=== PATIENT | female | born 1950 | race Caucasian/White ===

== ENCOUNTER 2016-11-02 12:53 | Observation (INO) | payer MEDICARE, OTHER ==
[2016-11-02] MEDS: NITROGLYCERIN 0.4 MG/TAB BTL SL PRN ×2 (13:04→13:10)
--- NOTE | 2016-11-02 13:07 | ERNOTE ---
Chest Pain/Cardiac HPI Chief Complaint: Chest Pain Time Seen by Provider: 11/02/16 12:56 Source: patient Exam Limitations: no limitations Immunizations: IMMUNIZATION HX History of Influenza Vaccine No Hx Pneumococcal Vaccination No Allergies/Adverse Reactions: Allergies No Known Allergies Allergy (Verified 11/02/16 16:38) Home Medications: HOME MEDICATIONS Levothyroxine Sodium [Synthroid] 75 mcg PO DAILY 11/02/16 [Last Taken Unknown] traMADol HCL [Ultram] 50 mg PO QID PRN 11/02/16 [Last Taken Unknown] Narrative: Patient presents to the emergency room with substernal chest pressure and pain which began at 10:30 PM last night. Pain became worse at 0 200 this morning. Pain is described as a 6 or 7 out of 10 at this time radiating to both shoulders in the mid back. He should took an adult aspirin earlier on today for this pain with no resolution of the chest pain. She denies any shortness of breath. Review of Systems - Review of Systems Constitutional: Present: no symptoms reported EYE: Present: no symptoms reported ENT: Present: no symptoms reported Respiratory: Present: no symptoms reported Cardiology: Present: See HPI Gastrointestinal/Abdominal: Present: no symptoms reported Genitourinary: Present: no symptoms reported Musculoskeletal: Present: no symptoms reported Skin: Present: no symptoms reported - Patient's Past Medical History Patient History - Medical: GERD, Hypothyroidism Patient History - Cardiac/Respiratory: No pertinent hx Patient History - Cancer: No Hx of Cancer Patient History - Other: None - Family History Father Family History - Medical: Family History - Cardiac/Respiratory: Myocardial Infarction Family History - Cancer: No pertinent family hx Mother Family History - Medical: Renal Failure Family History - Cardiac/Respiratory: Myocardial Infarction Family History - Cancer: Cervical - Social History Living Situations: home Psych History: No pertinent hx Alcohol Use: none Drug Use: none - Immunizations Hx Pneumococcal Vaccination: No History of Influenza Vaccine: No Physical Exam - Physical Exam General Appearance: Present: wd/wn, alert, no apparent distress - patient does appear slightly nervous but she is in no acute distress at this time. Ears, Nose, Throat: Present: normal ENT inspection Neck: Present: normal inspection, nontender, supple Respiratory: Present: no respiratory distress, normal breath sounds, no accessory muscle use, chest nontender, lungs clear Cardiovascular/Chest: Present: regular rate, rhythm, no murmur, normal peripheral pulses Gastrointestinal/Abdominal: Present: normal bowel sounds, nontender, nondistended, soft, no organomegaly Extremity Exam: Present: normal inspection, normal range of motion Neurological Exam: Present: alert, oriented, normal mood/affect, no motor/ sensory deficits ED Progress - Results and Orders Patient's Lab Results:: I have reviewed the patient's lab results. - Vital Signs Patient's Vital Signs:: I have reviewed the patient's vital signs. Vital Signs: Vital Signs 11/02/16 11/02/16 12:57 13:02 Temperature 37.5 C Pulse Rate 78 79 Respiratory 14 Rate Blood Pressure 144/91 O2 Sat by Pulse 96 Oximetry - EKG EKG: NSR - X-Ray X-Ray #1 X-Ray: chest - Progress/Reassessment Chief Complaint: Chest Pain Plan - Plan Plan: This patient has had chest pain which resolved significantly after 2 sublingual nitroglycerin. Her initial EKG revealed a normal sinus rhythm her chest x-ray is normal. The first set of enzymes on this patient is negative. However this examiner is concerned that this patient's substernal chest pain went away with nitroglycerin. Departure - Departure Clinical Impression: Chest pain Qualifiers: Chest pain type: unspecified Qualified Code(s): R07.9 - Chest pain, unspecified Disposition: [facility] Condition: Fair
[2016-11-02 13:14] LABS: Hematocrit 37.7 % (37.0-47.0); Hemoglobin 12.8 gm/dL (12.5-16.0); Mean Cell Volume 87.1 fl (78-100); Mean Corpuscular Hemoglobin 29.6 pg (27-31); Mean Platelet Volume 9.2 fl (6.0-9.5); Neutrophil % 74.4 % (42-75.0); Platelet Count 291 K/mm3 (150-450); Red Blood Count 4.33 M/mm3 (4.2-5.4); Red Cell Distribution Width 11.9 % (11.5-14.0); White Blood Count 8.1 K/mm3 (4.0-10.5)
[2016-11-02 13:26] LABS: Prothrombin Time (Patient) 10.4 Seconds (9.4-11.4)
[2016-11-02 13:28] LABS: Partial Thrombolplastin Time 27.3 Seconds (24-32)
[2016-11-02 13:32] LABS: ALT 24 U/L (19-67); AST 21 U/L (0-48); Albumin * 3.9 gm/dl (3.4-5.0); Alkaline Phosphatase * 77 U/L (50-170); Anion Gap 15.1 mmol/L (6.8-13.8); BUN/Creatinine Ratio 16.1 (9.0-21.6); Bilirubin, Total 0.6 mg/dL (0.0-1.1); Blood Urea Nitrogen 14 mg/dL (3-23); Ca. Corrected For Albumin 8.8 mg/dL (8.4-10.2); Chloride 103 mmol/L (97-106); Glucose * 110 mg/dL (70-110); Potassium 4.1 mmol/L (3.4-4.6); Sodium 139 mmol/L (132-142); Total Protein 7.1 gm/dL (6.2-8.2); Troponin I Less than 0.017 ng/ml (0.00-0.10)
[2016-11-02] MEDS ORDERED: BELLADONNA ALKALOIDS/PHENOBARB 60 ML BTL PO ONE (13:38)
[2016-11-02] MEDS ORDERED: MAG HYDROX/ALUMINUM HYD/SIMETH 30 ML UDC PO ONE (13:38)
[2016-11-02] MEDS ORDERED: LIDOCAINE HCL 20 ML UDC PO ONE (13:38)
[2016-11-02] MEDS ORDERED: traMADol HCL 50 MG TABLET PO PRN (19:20)
[2016-11-02] MEDS: ACETAMINOPHEN 325 MG TABLET PO PRN (19:47)
--- NOTE | 2016-11-02 20:09 | HP ---
Chief Complaint - Chief Complaint Date of Service: 11/02/16 Time of Service: 19:45 Chief Complaint: "Chest pressure pain". Source of HPI- Pt; reliable, ER provider report. History of Present Illness: Mrs. Kwon is a 66-yr-old [place] pt of Dr. Pam Bui with a PMH of: HLD & Hyporthyroidism. Pt states that she developed chest discomfort last night at about 10.30 pm. She took Tylenol and went to bed at about 11pm. She describes the chest discomfort as "pressure like" across her chest wall and rated the pain at at 8/10 when it begun. She managed to fall asleep until about 02.00am when she was awoken by the pain. She slept on the recliner the rest of the night. She was unable to attend scientologist service today, and when her got back home, he insisted for her to go to ED for an evaluation. She denies the associated symptoms of n/v, diaphoresis and palpitations. She felt SOB somewhat when the episode begun and states that she has pain on her sternum when she inhales & exhales. While at the ED, She reports that the pain improved after receiving the Nitroglycerine SL at the ED. She has cardiac risk factors involving her father who at age 70 from [place] & mother who is alive at 84yrs but has history of CAD with 4 stents. The initial work-up involving EKG & Troponin was negative for ACS/VT. The CXR did not have any acute findings. The D -dimer was elevated at 0.84 and a follow-up with CT did not show any evidence of Pulmonary Embolism. The pt will be admitted under observation for cardiac telemetry monitoring and repeat EKG & Troponin tests. - Patient's Past Medical History Patient History - Medical: GERD, Hypothyroidism Patient History - Cardiac/Respiratory: Hyperlipidemia Patient History - Cancer: No Hx of Cancer Patient History - Other: None LMP (females 10-50): unknown - Family History Father Family History - Medical: Family History - Cardiac/Respiratory: Myocardial Infarction - at 70 yrs. Mother Family History - Medical: Renal Failure Family History - Cardiac/Respiratory: Coronary Heart Disease - 4 stents, still alive at 84. , Myocardial Infarction Family History - Cancer: Cervical - Social History Living Situations: home Abuse History: No History of abuse Psych History: No pertinent hx Smoking Status: Former smoker Have you smoked in the past 12 months: No Do you dip or chew tobacco: No Smoking Stop Date: 01/30/82 Patient requests Smoking Cessation Consult: No Initiate information on Smoking Cessation: No Alcohol Use: none Drug Use: none - Immunizations Hx Pneumococcal Vaccination: No History of Influenza Vaccine: No Review Of Systems (GEN) - Review of Systems Generalized/Overall Review: Absent: Weakness, Chills, Fever, Malaise, Diaphoresis, Fatigue EENTM: Absent: Eye Pain, Double Vision, Nose Congestion, Throat Pain Respiratory: Present: Shortness of Breath. Absent: Cough, Orthopnea, Stridor Cardiac: Present: Chest Pain. Absent: Edema, Palpitations, Syncope Abdominal: Absent: Nausea, Vomiting, Hematemesis, Abdominal Pain, Constipation, Diarrhea Genitourinary: Absent: Burning, Itching, Urgency, Hesitancy Musculoskeletal: Absent: Joint Pain, Back Pain, Joint Swelling Neurological: Absent: Headache, Anxiety, Depressed Skin: Absent: Dryness, Lesions, Lumps Endocrine: Absent: Intolerance to Cold, Intolerance to Heat Misc: All systems neg except as marked Immunizations: IMMUNIZATION HX History of Influenza Vaccine No Hx Pneumococcal Vaccination No Allergies/Adverse Reactions: Allergies Allergy/AdvReac Type Severity Reaction Status Date / Time No Known Allergies Allergy Verified 11/02/16 16:38 Home Medications: HOME MEDICATIONS Levothyroxine Sodium [Synthroid] 75 mcg PO DAILY 11/02/16 [Last Taken Unknown] traMADol HCL [Ultram] 50 mg PO QID PRN 11/02/16 [Last Taken Unknown] Exam - Exam Vital Signs: Vital Signs - Last Taken Temp 36.4 C L 11/02/16 16:16 Pulse 68 11/02/16 17:00 Resp 20 11/02/16 16:16 BP 132/65 11/02/16 16:16 Pulse Ox 95 11/02/16 17:00 Constitutional: Present: Alert, Oriented x3, Cooperative, No distress ENT Exam: Present: normal ENT inspection, hearing grossly normal, moist mucous membranes. Absent: nasal drainage, pharyngeal erythema Eye Exam: bilateral eye: normal inspection, PERRL Neck: Present: full range of motion, supple, normal inspection Back Exam: Present: no CVA tenderness Breasts: Present: Exam deferred Respiratory: Present: lungs clear, no respiratory distress, no accessory muscle use Cardiovascular/Chest: Present: normal peripheral pulses, regular rate, rhythm, no chest tenderness, no edema, no murmur Abdomen: Present: Normal bowel sounds, soft, nontender /Rectal: Present: Exam deferred Extremity: Present: non-tender, normal inspection, no pedal edema Skin Exam: Present: warm/dry, no cyanosis Lymphatic: Present: no adenopathy Neurologic: Present: no motor/sensory deficits, alert, normal mood/affect, oriented x 3 Appearance: Present: appropriate appearance, appropriate insight Eye contact: Present: cooperative, good eye contact, normal speech Thoughts: Present: normal thought pattern, no apparent hallucination Diagnostic Studies: Laboratory Results WBC 8.1 K/mm3 (4.0-10.5) 11/02/16 13:07 RBC 4.33 M/mm3 (4.2-5.4) 11/02/16 13:07 Hgb 12.8 gm/dL (12.5-16.0) 11/02/16 13:07 Hct 37.7 % (37.0-47.0) 11/02/16 13:07 MCV 87.1 fl (78-100) 11/02/16 13:07 MCH 29.6 pg (27-31) 11/02/16 13:07 MCHC 34.0 g/dl (32-36) 11/02/16 13:07 RDW 11.9 % (11.5-14.0) 11/02/16 13:07 Plt Count 291 K/mm3 (150-450) 11/02/16 13:07 MPV 9.2 fl (6.0-9.5) 11/02/16 13:07 Immature Gran % (Auto) 0.40 % (0.001-0.429) 11/02/16 13:07 Immature Gran # (Auto) 0.03 K/mm3 (0.000-0.0310) 11/02/16 13:07 Neutrophils % 74.4 % (42-75.0) 11/02/16 13:07 Lymphocytes % 15.7 % (20-51) L 11/02/16 13:07 Monocytes % 9.0 % (0.0-9) 11/02/16 13:07 Eosinophils % 0.1 % (0.0-3.0) 11/02/16 13:07 Basophils % 0.4 % (0.0-1.0) 11/02/16 13:07 Nucleated RBC % 0.0 k/mm3 (0-1) 11/02/16 13:07 Neutrophils # 6.0 K/mm3 (1.3-6.0) 11/02/16 13:07 Lymphocytes # 1.3 k/mm3 (1.5-3.5) L 11/02/16 13:07 Monocytes # 0.7 k/mm3 (0.0-1.0) 11/02/16 13:07 Eosinophils # 0.0 k/mm3 (0.0-0.7) 11/02/16 13:07 Absolute Basophils 0.0 k/mm3 (0.0-0.1) 11/02/16 13:07 PT 10.4 Seconds (9.4-11.4) 11/02/16 13:09 INR (Anticoag Therapy) 1.00 INR (0.90-1.10) 11/02/16 13:09 PTT ([place]) 27.3 Seconds (24-32) 11/02/16 13:09 D-Dimer 0.84 mg/L (0.19-0.49) H 11/02/16 13:07 Sodium 139 mmol/L (132-142) 11/02/16 13:09 Plasma Sodium 139 mmol/L (130-142) 11/02/16 13:09 Potassium 4.1 mmol/L (3.4-4.6) 11/02/16 13:09 Chloride 103 mmol/L (97-106) 11/02/16 13:09 Carbon Dioxide 25.0 mmol/L (24-32.6) 11/02/16 13:09 Anion Gap 15.1 mmol/L (6.8-13.8) H 11/02/16 13:09 BUN 14 mg/dL (3-23) 11/02/16 13:09 Creatinine 0.87 mg/dL (0.4-1.4) 11/02/16 13:09 Est GFR (Non-Af Amer) 69 mL/min (60-130) 11/02/16 13:09 BUN/Creatinine Ratio 16.1 (9.0-21.6) 11/02/16 13:09 Random Glucose 110 mg/dL (70-110) 11/02/16 13:09 Calcium 9.0 mg/dL (7.9-10.9) 11/02/16 13:09 Calcium Adj for Albumin 8.8 mg/dL (8.4-10.2) 11/02/16 13:09 Total Bilirubin 0.6 mg/dL (0.0-1.1) 11/02/16 13:09 AST 21 U/L (0-48) 11/02/16 13:09 ALT 24 U/L (19-67) 11/02/16 13:09 Alkaline Phosphatase 77 U/L (50-170) 11/02/16 13:09 Troponin I Less than 0.017 ng/ml (0.00-0.10) 11/02/16 13:09 Total Protein 7.1 gm/dL (6.2-8.2) 11/02/16 13:09 Albumin 3.9 gm/dl (3.4-5.0) 11/02/16 13:09 Assessment/Plan - Assessment/Plan (1) Chest pain, rule out acute myocardial infarction Assessment: Mrs. Kwon presented with complaints of chest pressure that was accompanied with SOB. She denied the associated symptoms of n/v, diaphoresis & palpitations.The initial work-up at the ED involving EKG and Troponin was negative for ACS/VT. She will be admitted under observation for repeat EKG & Troponin and she will remain under continuous cardiac telemetry monitoring with the goal or ruling out ACS/VT. She had additional work up involving CT of the chest which did not show any signs of: Pulmonary Embolism,Aneurysm, dissection, consolation, pleural effusion, Pneumothorax. At the time of physical exam, she denies having any chest pain or pressure. If she has no acute events overnight and the repeat EKG & Troponin is negative, will plan to discharge in am. Problem: Acute (2) HLD (hyperlipidemia) Problem: Chronic (3) Hypothyroidism Problem: Chronic
[2016-11-03] MEDS: ACETAMINOPHEN 325 MG TABLET PO PRN (02:15)
--- NOTE | 2016-11-03 05:33 | DS ---
(1) Chest pain, rule out acute myocardial infarction Problem: Acute (2) HLD (hyperlipidemia) Problem: Chronic (3) Hypothyroidism Problem: Chronic Description of Stay: ADMISSION HPI Mrs. Kwon is a 66-yr-old [place] pt of Dr. Pam Bui with a PMH of: HLD & Hyporthyroidism. Pt states that she developed chest discomfort last night at about 10.30 pm. She took Tylenol and went to bed at about 11pm. She describes the chest discomfort as "pressure like" across her chest wall and rated the pain at at 8/10 when it begun. She managed to fall asleep until about 02.00am when she was awoken by the pain. She slept on the recliner the rest of the night. She was unable to attend taoist service today, and when her got back home, he insisted for her to go to ED for an evaluation. She denies the associated symptoms of n/v, diaphoresis and palpitations. She felt SOB somewhat when the episode begun and states that she has pain on her sternum when she inhales & exhales. While at the ED, She reports that the pain improved after receiving the Nitroglycerine SL at the ED. She has cardiac risk factors involving her father who at age 70 from [place] & mother who is alive at 84yrs but has history of CAD with 4 stents. The initial work-up involving EKG & Troponin was negative for ACS/CT. The CXR did not have any acute findings. The D -dimer was elevated at 0.84 and a follow-up with CT did not show any evidence of Pulmonary Embolism. The pt will be admitted under observation for cardiac telemetry monitoring and repeat EKG & Troponin tests. HOSPITAL COURSE PROBLEM/S 1.) CHEST PAIN R/O CT Mrs. Kwon presented with complaints of chest pressure that was accompanied with SOB. She denied the associated symptoms of n/v, diaphoresis & palpitations.The initial work-up at the ED involving EKG and Troponin was negative for ACS/CT. She was admitted under observation for repeat EKG & Troponin and the were both negative as well. She was placed under continuous cardiac telemetry monitoring and she remained in NSR during the overnight stay. She had no acute events overnight. Other additional work up at the ED involving CT of the chest did not show any signs of: Pulmonary Embolism, Aneurysm, dissection, consolation, pleural effusion, Pneumothorax. It is likely that her symptoms were Gastrointestinal related given the time the episode first occurred. Therefore will treat as her symptom as esophageal motility disorder involving GERD and start her on a PPI (Omeprazole 40 mg daily) X 8 weeks. She is in a stable condition to be discharge home and she was advised to follow-up with her PCP this week or next week. Procedures Performed: none Discharge Disposition: Home self care Disposition: Home self-care Condition: Good Discharge Activity: Activity as tolerated Discharge Diet: General/regular food, Low fat/chol Referrals: Pam Bui MD [Primary Care Provider] - Problem Oriented Discharge Instructions to Patient/Family: Food Choices for Gastroesophageal Reflux Disease, Adult, [id number], Esophageal Spasm, Chest Pain Observation Additional Patient Instructions (free text): Follow up with Dr. Pam Bui next week. Prescriptions (Any new or edited meds): Omeprazole 40 mg PO DAILY #60 capsule. Complete Home Medications List: Complete Home Medication List: Levothyroxine Sodium [Synthroid] 75 mcg PO DAILY 11/02/16 traMADol HCL [Ultram] 50 mg PO QID PRN 11/02/16 Omeprazole 40 mg PO DAILY #60 capsule. 11/03/16
[2016-11-03 05:37] VITALS: BP 115/53
[2016-11-03] MEDS ORDERED: NITROGLYCERIN 0.4 MG/TAB BTL SL PRN (06:13)
[2016-11-03] MEDS ORDERED: LEVOTHYROXINE SODIUM 75 MCG TABLET PO SCH (07:00)
== END 2016-11-04 06:00 | disposition home or self-care (01) ==
LOC: ER 12:53 → UNDOADMOB 13:39 → MS 13:39 → UNDODISOB 11-03 09:05
PROVIDERS: ADMIT Internal Medicine; ATTEND Internal Medicine
DX: I48.91 Unspecified atrial fibrillation (principal); R07.9 Chest pain, unspecified; I10 Essential (primary) hypertension; E78.5 Hyperlipidemia, unspecified; E03.9 Hypothyroidism, unspecified; Z87.891 Personal history of nicotine dependence
CPT/HCPCS: 36415; 71010; 71020; 71275; 78452; 80053; 80061; 82553; 84443; 84484; 85025; 85379; 85610; 85730; 93005; 93017; 93306; 99283; 99284; A9502; G0378

== ENCOUNTER 2016-11-03 11:41 | Observation (INO) | payer MEDICARE, OTHER ==
[2016-11-03 12:04] LABS: Hematocrit 39.4 % (37.0-47.0); Hemoglobin 13.2 gm/dL (12.5-16.0); Mean Cell Volume 88.7 fl (78-100); Mean Corpuscular Hemoglobin 29.7 pg (27-31); Mean Corpuscular Hgb Conc 33.5 g/dl (32-36); Mean Platelet Volume 9.4 fl (6.0-9.5); Neutrophil % 67.4 % (42-75.0); Platelet Count 291 K/mm3 (150-450); Red Blood Count 4.44 M/mm3 (4.2-5.4); Red Cell Distribution Width 11.9 % (11.5-14.0)
[2016-11-03 12:12] LABS: Prothrombin Time (Patient) 10.5 Seconds (9.4-11.4)
[2016-11-03 12:13] LABS: INR 1.01 INR (0.90-1.10)
[2016-11-03 12:21] LABS: Troponin I Less than 0.017 ng/ml (0.00-0.10)
[2016-11-03 12:26] LABS: ALT 23 U/L (19-67); AST 20 U/L (0-48); Albumin * 3.5 gm/dl (3.4-5.0); Alkaline Phosphatase * 75 U/L (50-170); Anion Gap 10.1 mmol/L (6.8-13.8); BUN/Creatinine Ratio 15.2 (9.0-21.6); Bilirubin, Total 0.4 mg/dL (0.0-1.1); Blood Urea Nitrogen 16 mg/dL (3-23); Ca. Corrected For Albumin 9.2 mg/dL (8.4-10.2); Calcium * 9.1 mg/dL (7.9-10.9); Carbon Dioxide 31.9 mmol/L (24-32.6); Chloride 102 mmol/L (97-106); Glucose * 158 mg/dL (70-110); Sodium 140 mmol/L (132-142); Total Protein 6.9 gm/dL (6.2-8.2)
--- NOTE | 2016-11-03 12:41 | ERNOTE ---
Chest Pain/Cardiac HPI Chief Complaint: Palpitations Time Seen by Provider: 11/03/16 11:57 Source: patient Exam Limitations: no limitations Immunizations: IMMUNIZATION HX History of Influenza Vaccine No Hx Pneumococcal Vaccination No Allergies/Adverse Reactions: Allergies No Known Allergies Allergy (Verified 11/03/16 11:52) Home Medications: HOME MEDICATIONS Levothyroxine Sodium [Synthroid] 75 mcg PO DAILY 11/02/16 [Last Taken Unknown] traMADol HCL [Ultram] 50 mg PO QID PRN 11/02/16 [Last Taken Unknown] Aspirin [Aspirin EC] 81 mg PO DAILY #30 tablet. 11/03/16 [Last Taken Unknown] Omeprazole 40 mg PO DAILY #60 capsule. 11/03/16 [Last Taken Unknown] traMADol HCL [Ultram] 50 mg PO TID PRN #25 tablet 11/03/16 [Last Taken Unknown] Narrative: Patient returns to the emergency room 2 hours after she was discharged from that facility with a new onset symptoms of dizziness feeling as if she is going to pass out and rapid heart rate. Have the symptoms until she arrived home today. She certainly did not have any of these symptoms in house when she was admitted. Denies any chest pains or shortness of breath at rest. This patient is asked repeatedly if she has been diagnosed with atrial fibrillation in the past and she adamantly denies it. Review of Systems - Review of Systems Constitutional: Present: weakness EYE: Present: no symptoms reported ENT: Present: no symptoms reported Respiratory: Present: no symptoms reported Cardiology: Present: See HPI Gastrointestinal/Abdominal: Present: no symptoms reported Genitourinary: Present: no symptoms reported Musculoskeletal: Present: no symptoms reported Neurological: Present: no symptoms reported, dizziness/light-headedness - H and feels dizzy and lightheaded when she walks around. - Patient's Past Medical History Patient History - Medical: GERD, Hypothyroidism Patient History - Cardiac/Respiratory: Atrial Fibrillation, Hyperlipidemia Patient History - Cancer: No Hx of Cancer Patient History - Other: None - Family History Father Family History - Medical: Family History - Cardiac/Respiratory: Myocardial Infarction Family History - Cancer: No pertinent family hx Mother Family History - Medical: Renal Failure Family History - Cardiac/Respiratory: Coronary Heart Disease, Myocardial Infarction Family History - Cancer: Cervical - Social History Living Situations: home Abuse History: No History of abuse Psych History: No pertinent hx Smoking Status: Never smoker Have you smoked in the past 12 months: No Alcohol Use: none Drug Use: none - Immunizations Hx Pneumococcal Vaccination: No History of Influenza Vaccine: No Physical Exam - Physical Exam General Appearance: Present: wd/wn, alert, no apparent distress Ears, Nose, Throat: Present: normal ENT inspection Neck: Present: normal inspection, nontender Respiratory: Present: no respiratory distress, normal breath sounds Cardiovascular/Chest: Present: no murmur, normal peripheral pulses, irregularly irregular - patient now has atrial fibrillation on a 12-lead EKG these findings were not there upon the previous admission during her hospital stay here Extremity Exam: Present: normal inspection, normal range of motion ED Progress - Results and Orders Patient's Lab Results:: I have reviewed the patient's lab results. - Vital Signs Patient's Vital Signs:: I have reviewed the patient's vital signs. Vital Signs: Vital Signs 11/03/16 11/03/16 11/03/16 05:00 11:44 11:47 Temperature 37.2 C 36.7 C Pulse Rate 84 80 Respiratory 16 Rate Blood Pressure 115/53 127/73 O2 Sat by Pulse 95 Oximetry 11/03/16 11/03/16 11:53 12:23 Temperature Pulse Rate 95 82 Respiratory 14 Rate Blood Pressure 103/78 O2 Sat by Pulse 98 Oximetry - X-Ray X-Ray #1 X-Ray: chest - Progress/Reassessment Chief Complaint: Palpitations Plan - Plan Plan: She has new onset atrial fibrillation that she has not had before. Furthermore when she sits up from a laying down position she feels dizzy. Furthermore when she is lying down her pulse is 78 when she stands up her pulse increases to 95 the pressure maintains stable. I had the patient walk around for a short period of time with a accompanying her and then I spoke to the patient while she was walking and patient's oxygen saturation at that time dropped down to 88 % on room air patient stated that she did not feel like she was going to pass out but she felt extremely weak. She did state that when she was at home she felt like she was going to pass out after she walked around for a while. At this time Dr. Martha Skaggs was consulted in regards to admission of the patient to the [facility] observation unit for a diagnosis of new onset atrial fibrillation. Departure - Departure Clinical Impression: New onset atrial fibrillation Disposition: [facility] Condition: Serious Referrals: Pam Bui MD [Primary Care Provider] -
[2016-11-03] MEDS ORDERED: APIXABAN 2.5 MG TABLET PO ONE (13:30)
[2016-11-03] MEDS ORDERED: traMADol HCL 50 MG TABLET PO PRN (14:01)
[2016-11-03] MEDS ORDERED: ACETAMINOPHEN 325 MG TABLET PO PRN (14:02)
--- NOTE | 2016-11-03 18:11 | HP ---
Chief Complaint - Chief Complaint Date of Service: 11/03/16 Time of Service: 18:31 Chief Complaint: Dizziness History of Present Illness: Mrs. Kwon is a 66-yr-old white woman who normally sees Dr. Pam Bui. She has a his has a history of hyperlipidemia and hypothyroidism. She developed chest discomfort about 10.30 pm 11/02/16. She took Tylenol and went to bed at about 11pm. She described the chest discomfort as "pressure like" across her chest wall and rated the pain at at 8/10 when it began. She managed to fall asleep until about 02.00am when she was awakened by the pain. She slept on the recliner the rest of that night. She was unable to attend mu-ism service the next day, and when her got back home, he insisted she go to the [facility] ED for an evaluation. She denied the associated symptoms of n/v, diaphoresis or palpitations. She felt SOB somewhat when the episode began and stated that she had pain on her sternum when she inhaled & exhaled. While at the ED, she reported that the pain improved after receiving nitroglycerine sl. She has cardiac risk factors including her father who at age 70 from [place] & mother who is alive at 84 yrs, but who has a history of CAD with 4 stents. Her work up was negative for GA. Her D-dimer was elevated at 0.84, but her CT angiogram did not show pulmonary angiogram. It was thought she most likely had musculoskeletal chest pain related to recent heavy lifting. She was given a prescription for tramadol 50 mg po tid prn pain and she was told to take aspirin 81 mg po daily. Her primary care doctor was to decide if she needed an outpatient cardiac stress test, lipid panel of stating therapy. Subsequently, the patient returned to the [facility] emergency room 2 hours after she was discharged from our facility with a new onset of dizziness as if she were going to pass out along with rapid heart rate. She had these symptoms when she arrived home today. She certainly did not have any of these symptoms when she was admitted the first time. She denies any chest pains or shortness of breath at rest. This patient denies repeatedly if she has ever had atrial fibrillation in the past. - Patient's Past Medical History Patient History - Medical: GERD, Hypothyroidism Patient History - Cardiac/Respiratory: Atrial Fibrillation, Hyperlipidemia Patient History - Cancer: No Hx of Cancer Patient History - Other: None - Family History Father Family History - Medical: Family History - Cardiac/Respiratory: Myocardial Infarction Family History - Cancer: No pertinent family hx Mother Family History - Medical: Renal Failure Family History - Cardiac/Respiratory: Coronary Heart Disease, Myocardial Infarction Family History - Cancer: Cervical - Social History Living Situations: home Abuse History: No History of abuse Psych History: No pertinent hx Smoking Status: Former smoker Have you smoked in the past 12 months: No Do you dip or chew tobacco: No Smoking Stop Date: 01/30/82 Patient requests Smoking Cessation Consult: No Initiate information on Smoking Cessation: No Alcohol Use: none Drug Use: none - Immunizations Hx Pneumococcal Vaccination: No History of Influenza Vaccine: No Review Of Systems (GEN) - Review of Systems Generalized/Overall Review: Present: Malaise EENTM: Present: No Symptoms Reported Respiratory: Present: No Symptoms Reported Cardiac: Present: Chest Pain Abdominal: Present: No Symptoms Reported Genitourinary: Present: No Symptoms Reported Musculoskeletal: Present: No Symptoms Reported Neurological: Present: No Symptoms Reported Skin: Present: No Symptoms Reported Endocrine: Present: No Symptoms Reported Misc: All systems neg except as marked Allergies/Adverse Reactions: Allergies Allergy/AdvReac Type Severity Reaction Status Date / Time No Known Allergies Allergy Verified 11/03/16 14:36 Home Medications: HOME MEDICATIONS Levothyroxine Sodium [Synthroid] 75 mcg PO DAILY 11/02/16 [Last Taken Unknown] traMADol HCL [Ultram] 50 mg PO QID PRN 11/02/16 [Last Taken Unknown] Aspirin [Aspirin EC] 81 mg PO DAILY #30 tablet. 11/03/16 [Last Taken Unknown] Omeprazole 40 mg PO DAILY #60 capsule. 11/03/16 [Last Taken Unknown] traMADol HCL [Ultram] 50 mg PO TID PRN #25 tablet 11/03/16 [Last Taken Unknown] Exam - Exam Vital Signs: Vital Signs - Last Taken Temp 36.8 C 11/03/16 14:39 Pulse 75 11/03/16 15:05 Resp 18 11/03/16 14:39 BP 126/69 11/03/16 14:39 Pulse Ox 98 11/03/16 14:39 Constitutional: Present: Alert, Oriented x3, Cooperative ENT Exam: Present: normal ENT inspection, hearing grossly normal Eye Exam: bilateral eye: normal inspection, PERRL, EOMI Neck: Present: normal inspection Back Exam: Present: normal inspection, no CVA tenderness, vertebral tenderness Respiratory: Present: lungs clear, normal breath sounds, no respiratory distress Cardiovascular/Chest: Present: regular rate, rhythm, no edema Abdomen: Present: Normal bowel sounds, soft, nontender, nondistended, no rebound tenderness, no hepatospenomegaly, obese Extremity: Present: normal range of motion, non-tender, normal inspection, no pedal edema, no calf tenderness Skin Exam: Present: normal color, warm/dry, no cyanosis Neurologic: Present: alert, oriented x 3 Appearance: Present: appropriate appearance, appropriate insight, neat Eye contact: Present: cooperative, good eye contact, normal speech Thoughts: Present: normal thought pattern Diagnostic Studies: Laboratory Results WBC 6.0 K/mm3 (4.0-10.5) D 11/03/16 12:00 RBC 4.44 M/mm3 (4.2-5.4) 11/03/16 12:00 Hgb 13.2 gm/dL (12.5-16.0) 11/03/16 12:00 Hct 39.4 % (37.0-47.0) 11/03/16 12:00 MCV 88.7 fl (78-100) 11/03/16 12:00 MCH 29.7 pg (27-31) 11/03/16 12:00 MCHC 33.5 g/dl (32-36) 11/03/16 12:00 RDW 11.9 % (11.5-14.0) 11/03/16 12:00 Plt Count 291 K/mm3 (150-450) 11/03/16 12:00 MPV 9.4 fl (6.0-9.5) 11/03/16 12:00 Immature Gran % (Auto) 0.50 % (0.001-0.429) H 11/03/16 12:00 Immature Gran # (Auto) 0.03 K/mm3 (0.000-0.0310) 11/03/16 12:00 Neutrophils % 67.4 % (42-75.0) 11/03/16 12:00 Lymphocytes % 21.5 % (20-51) 11/03/16 12:00 Monocytes % 8.5 % (0.0-9) 11/03/16 12:00 Eosinophils % 1.3 % (0.0-3.0) 11/03/16 12:00 Basophils % 0.8 % (0.0-1.0) 11/03/16 12:00 Nucleated RBC % 0.0 k/mm3 (0-1) 11/03/16 12:00 Neutrophils # 4.0 K/mm3 (1.3-6.0) 11/03/16 12:00 Lymphocytes # 1.3 k/mm3 (1.5-3.5) L 11/03/16 12:00 Monocytes # 0.5 k/mm3 (0.0-1.0) 11/03/16 12:00 Eosinophils # 0.1 k/mm3 (0.0-0.7) 11/03/16 12:00 Absolute Basophils 0.1 k/mm3 (0.0-0.1) 11/03/16 12:00 PT 10.5 Seconds (9.4-11.4) 11/03/16 12:00 INR (Anticoag Therapy) 1.01 INR (0.90-1.10) 11/03/16 12:00 Sodium 140 mmol/L (132-142) 11/03/16 12:00 Plasma Sodium 141 mmol/L (130-142) 11/03/16 12:00 Potassium 4.0 mmol/L (3.4-4.6) 11/03/16 12:00 Chloride 102 mmol/L (97-106) 11/03/16 12:00 Carbon Dioxide 31.9 mmol/L (24-32.6) 11/03/16 12:00 Anion Gap 10.1 mmol/L (6.8-13.8) 11/03/16 12:00 BUN 16 mg/dL (3-23) 11/03/16 12:00 Creatinine 1.05 mg/dL (0.4-1.4) 11/03/16 12:00 Est GFR (Non-Af Amer) 56 mL/min (60-130) L 11/03/16 12:00 BUN/Creatinine Ratio 15.2 (9.0-21.6) 11/03/16 12:00 Random Glucose 158 mg/dL (70-110) H D 11/03/16 12:00 Calcium 9.1 mg/dL (7.9-10.9) 11/03/16 12:00 Calcium Adj for Albumin 9.2 mg/dL (8.4-10.2) 11/03/16 12:00 Total Bilirubin 0.4 mg/dL (0.0-1.1) 11/03/16 12:00 AST 20 U/L (0-48) 11/03/16 12:00 ALT 23 U/L (19-67) 11/03/16 12:00 Alkaline Phosphatase 75 U/L (50-170) 11/03/16 12:00 CK-MB (CK-2) 2.0 ng/mL (0.0-9.0) 11/03/16 12:00 Troponin I Less than 0.017 ng/ml (0.00-0.10) 11/03/16 12:00 Total Protein 6.9 gm/dL (6.2-8.2) 11/03/16 12:00 Albumin 3.5 gm/dl (3.4-5.0) 11/03/16 12:00 TSH 1.671 uIU/mL (0.358-3.74) 11/03/16 12:00 Assessment/Plan - Narrative Narrative: Echo, stress test, lipids, eliquis. - Assessment/Plan (1) New onset atrial fibrillation Problem: Acute (2) Chest pain Problem: Acute Qualifiers: Chest pain type: unspecified Qualified Code(s): R07.9 - Chest pain, unspecified (3) HLD (hyperlipidemia) Problem: Chronic (4) HTN (hypertension) Problem: Chronic (5) Hypothyroidism Problem: Chronic
[2016-11-03] MEDS ORDERED: APIXABAN 2.5 MG TABLET PO SCH (21:00)
[2016-11-04 05:50] LABS: Chol/HDL Risk Ratio 3.5 mg/dL (3.3-4.4)
[2016-11-04] MEDS ORDERED: PANTOPRAZOLE SODIUM 40 MG TABLET.EC PO SCH (07:00)
[2016-11-04] MEDS ORDERED: LEVOTHYROXINE SODIUM 75 MCG TABLET PO SCH (07:00)
--- NOTE | 2016-11-04 08:13 | PN ---
Subjective - Date and Time Seen Date: 11/04/16 Time: 07:10 Subjective Narrative: Feels much better. No palpitations. No chest pain. no heart racing. No light headedness. Objective - Review of Systems Generalized/Overall Review: Reports: No Symptoms Reported EENTM: Reports: No Symptoms Reported Respiratory: Reports: No Symptoms Reported Cardiac: Reports: No Symptoms Reported Abdominal: Reports: No Symptoms Reported Genitourinary Symptoms: Reports: No Symptoms Reported Musculoskeletal Complaints: Reports: No Symptoms Reported Neurological: Reports: No Symptoms Reported Skin: Reports: No Symptoms Reported Endocrine: Reports: No Symptoms Reported Misc: All systems neg except as marked - Vitals Vitals: Last Vital Signs Selected Entries 11/04/16 11/04/16 02:32 06:25 Temperature 37.1 C Temperature Temporal Artery Source Scan Pulse Rate 80 88 Pulse Rhythm Regular Respiratory 18 Rate Respiratory Normal Depth Respiratory Normal Effort Non-Labored Blood Pressure 108/57 111/72 Blood Pressure Supine Standing Position O2 Sat by Pulse 98 Oximetry Oxygen Delivery Room Air Method - Exam Constitutional: Present: Alert, Oriented x3, Cooperative, Well developed, Well nourished, No distress ENT Exam: Present: normal ENT inspection Neck: Present: normal inspection Respiratory: Present: lungs clear, normal breath sounds, no respiratory distress Cardiovascular/Chest: Present: regular rate, rhythm, no murmur Abdomen: Present: Normal bowel sounds, soft, nontender, nondistended, no rebound tenderness, no hepatospenomegaly, no masses Extremity: Present: normal range of motion, non-tender, normal inspection, no pedal edema Skin Exam: Present: normal color, warm/dry, no cyanosis Neurologic: Present: alert, oriented x 3 Appearance: Present: appropriate appearance, appropriate insight, neat, no memory impairment Eye contact: Present: cooperative, good eye contact, normal speech Thoughts: Present: normal thought pattern Assessment/Plan Plan Narrative: Echo, stress test, cardiology consult - Problems/Diagnosis (1) New onset atrial fibrillation Problem: Acute (2) Chest pain Problem: Acute Qualifiers: Chest pain type: unspecified Qualified Code(s): R07.9 - Chest pain, unspecified (3) HLD (hyperlipidemia) Problem: Chronic (4) HTN (hypertension) Problem: Chronic (5) Hypothyroidism Problem: Chronic
[2016-11-04] MEDS ORDERED: METOPROLOL TARTRATE 1 MG/ML AMPUL IV ONE (13:02)
[2016-11-04 14:07] VITALS: BP 112/68
--- NOTE | 2016-11-04 14:15 | PN ---
Progess Note - Interim Narrative: 11/04/16 14:[address] Jasso by phone. During her pharmacologic nuclear stress test, at the end, she had a heart rate up to 200, ST depression, and felt that she would pass out. He gave her IV lopressor. She is now back to normal rate. I called Dr. Chavez [place], . He will accept her for cardiac cath. They will call us back with details, including name of accepting physician.
--- NOTE | 2016-11-04 14:57 | DS ---
Transfer Discharge Summary - Diagnosis(s)/Problems (1) New onset atrial fibrillation Problem: Acute (2) Chest pain Problem: Acute (3) HLD (hyperlipidemia) Problem: Chronic (4) HTN (hypertension) Problem: Chronic (5) Hypothyroidism Problem: Chronic - Course Description of Stay: Stable while here. At end of nuclear pharmacolic stress test, had rate of 200, developed narrow complex rate of 200, with near syncope. resumed rate in 80s with IV metoprolol. feels ok now. I spoke with Dr. Chavez, cardiology [facility] in [place]. Will transfer by ambulance of cardiac cath. Procedures Performed: none - Results and Findings Results and Findings: Laboratory Results - last 24 hr 11/03/16 11/04/16 20:50 05:15 Troponin I Less than 0.017 Triglycerides 103 Cholesterol 191 LDL Cholesterol 116 VLDL Cholesterol 21 HDL Cholesterol 54 Cholesterol/HDL Ratio 3.5 - Medications Medications: Active Medications Apixaban (Eliquis) 5 mg PO BID DIANNA Stop: 12/03/16 21:01 Last Admin: 11/03/16 20:13 Dose: 5 mg Discontinued Medications Apixaban (Eliquis) 5 mg PO ONCE ONE Stop: 11/03/16 13:31 Last Admin: 11/03/16 13:17 Dose: 5 mg - Disposition Disposition: [facility] Condition: Good
--- NOTE | 2016-11-05 12:44 | ECHO ---
This report is available in the EMR
== END 2016-11-04 15:31 | disposition short-term general hospital (02) ==
LOC: ER 11:41 → MS 13:21 → UNDOADMOB 13:21 → MS 13:26
PROVIDERS: ADMIT Allergy & Immunology; ATTEND Allergy & Immunology
DX: I48.91 Unspecified atrial fibrillation (principal); R07.89 Other chest pain; I10 Essential (primary) hypertension; E78.5 Hyperlipidemia, unspecified; E03.9 Hypothyroidism, unspecified; Z87.891 Personal history of nicotine dependence